=== PATIENT | female | born 1995 | race Caucasian/White ===

== ENCOUNTER 2016-10-13 12:26 | Inpatient (IN) | payer BC ==
[2016-10-13 14:18] LABS: Hematocrit 34 % (35-47); Hemoglobin 11.1 g/dl (12.0-16.0); Mean Corpuscular HGB Conc 33 g/dl (31-36); Mean Corpuscular Hemoglobin 28 pg (27-31); Mean Corpuscular Volume 85 fL (80-97); Mean Platelet Volume 10 um3 (7.4-10.4); Red Blood Count 3.98 10^6/ul (4.0-5.4); Red Cell Distribution Width 14 % (10.5-15); White Blood Count 18.3 10^3/ul (3.5-10.8)
[2016-10-13 14:19] LABS: Add Diff/Slide Review? Slide Review Added; Comments Flag Yes
[2016-10-13] MEDS ORDERED: Oxytocin in LR* 20 UNITS/1,000 ML BAG IVPB SCH ×2 (16:00→18:00)
[2016-10-13] MEDS ORDERED: OBEPIDURAL* 0 ML ONE (16:55)
[2016-10-13] MEDS ORDERED: Glycerin ADULT SUPP PR PRN (17:58)
[2016-10-13] MEDS ORDERED: Witch Hazel PAD* JAR TOPICAL PRN (17:58)
[2016-10-13] MEDS ORDERED: Dibucaine 1% 28.35 GM TUBE PR PRN (17:58)
[2016-10-13] MEDS: Ibuprofen TAB* 600 MG PO PRN (19:59)
[2016-10-13] MEDS ORDERED: Simethicone TAB* 80 MG TAB.CHEW PO SCH (21:00)
[2016-10-13] MEDS: Acetaminophen TAB* 325 MG PO PRN (22:13)
[2016-10-14] MEDS: Ibuprofen TAB* 600 MG PO PRN ×4 (02:02→20:33)
[2016-10-14] MEDS ORDERED: oxyCODONE/Acetamin 5/325 MG* TAB ONE (03:22)
[2016-10-14] MEDS ORDERED: oxyCODONE/Acetamin 5/325 MG* TAB PO ONE (04:00)
[2016-10-14 06:30] LABS: Hematocrit 32 % (35-47); Hemoglobin 10.2 g/dl (12.0-16.0); Mean Corpuscular HGB Conc 32 g/dl (31-36); Mean Corpuscular Hemoglobin 28 pg (27-31); Mean Corpuscular Volume 87 fL (80-97); Mean Platelet Volume 10 um3 (7.4-10.4); Red Blood Count 3.64 10^6/ul (4.0-5.4); Red Cell Distribution Width 14 % (10.5-15); White Blood Count 22.4 10^3/ul (3.5-10.8)
[2016-10-14] MEDS: Docusate CAP* 100 MG PO SCH ×4 (06:30→19:36)
[2016-10-14] MEDS: Acetaminophen TAB* 325 MG PO PRN ×4 (06:37→19:36)
[2016-10-14 06:43] LABS: Comments Flag Yes
[2016-10-14] MEDS ORDERED: Ferrous Gluconate TAB* 324 MG TAB PO SCH (09:00)
[2016-10-14] MEDS: oxyCODONE/Acetamin 5/325 MG* TAB PO PRN (21:51)
[2016-10-15] MEDS: Ibuprofen TAB* 600 MG PO PRN ×2 (02:29→08:26)
[2016-10-15] MEDS: oxyCODONE/Acetamin 5/325 MG* TAB PO PRN ×2 (04:24→10:33)
[2016-10-15 08:24] VITALS: BP 110/70
[2016-10-15] MEDS: Docusate CAP* 100 MG PO SCH (09:19)
== END 2016-10-15 11:34 | disposition home or self-care (01) | DRG 560 ==
LOC: MCHOBOUT 12:26 → MCHOB 13:02
PROVIDERS: ADMIT Obstetrics & Gynecology; ATTEND Obstetrics & Gynecology
PROC: 10E0XZZ Delivery of Products of Conception, External Approach (ICD-10-PCS; principal; 2016-10-13)
DX: O99.334 Smoking (tobacco) complicating childbirth (principal); O99.344 Other mental disorders complicating childbirth; F17.210 Nicotine dependence, cigarettes, uncomplicated; F32.89 Other specified depressive episodes; Z3A.39 39 weeks gestation of pregnancy; Z37.0 Single live birth
CPT/HCPCS: 36415; 85025; 86850; 86900; 86901; A9270-GY

== ENCOUNTER 2019-01-12 09:03 | Emergency (ER) | payer BC, MEDICAID ==
--- NOTE | 2019-01-12 09:27 | ED ---
Headache - HPI Summary HPI Summary: Pt. is a 23 y.o female who presents to the ER for a headache that started yesterday. Pt. notes hx of migraines and sees a neurologist at [place]. Pt. take fioricet as needed. Pt. states she developed a severe headache yesterday that was not relieved with fioricet so she went to ER at [place]. Pt. states she was treated with IV medication, felt better and was sent home. Pt. states today h/a returned and is more severe than her typical h/a. Pt. notes blurry/double vision and seeing a flashing light. Associated sxs of nausea. Lights and noise make sxs worse. Nothing makes sxs better. Past hx of depression. Denies recent illness, fever, sore throat, sinus pain, ear pain, cough, abd. pain. Sxs are moderate in severity. - History Of Current Complaint Chief Complaint: EDHeadache Stated Complaint: MIGRAINE PER PT Time Seen by Provider: 01/12/19 09:22 Hx Obtained From: Patient - Allergies/Home Medications Allergies/Adverse Reactions: Allergies Allergy/AdvReac Type Severity Reaction Status Date / Time erythromycin base Allergy Eyes Verified 01/12/19 09:09 Itchy/Swollen/Red/Watery Home Medications: Home Medications Butalb/Acetamin/Caff TAB* [Fioricet TAB*] 1 tab PO TID PRN 01/12/19 [History Confirmed 01/12/19] DULoxetine CAP* [Cymbalta CAP*] 60 mg PO DAILY 01/12/19 [History Confirmed ] Norelgest/Ethinyl Estr 150/35 [Xulane 150/35 PATCH] 1 patch TOPICAL WEEKLY 01/12 [History Confirmed 01/12/19] PMH/Surg Hx/FS Hx/Imm Hx Previously Healthy: Yes Psychiatric History: Reports: Hx Depression - Surgical History Surgery Procedure, Year, and Place: Eye surgery Infectious Disease History: No Infectious Disease History: Denies: Traveled Outside the [place] in Last 30 Days - Family History Known Family History: Positive: Cardiac Disease - paternal , Hypertension - maternal Family History: FHx of asthma, sleep apnea, and an unknown autoimmune disease. - Social History Occupation: Employed Full-time Lives: With Family Alcohol Use: None Substance Use Type: Reports: None Smoking Status (MU): Light Every Day Tobacco Smoker Type: Cigarettes Have You Smoked in the Last Year: Yes Review of Systems Constitutional: Negative Negative: Fever, Chills Positive: Photophobia, Blurred Vision, Diplopia. Negative: Drainage, Erythema ENT: Negative Cardiovascular: Negative Respiratory: Negative Positive: Nausea. Negative: Vomiting Genitourinary: Negative Positive: Arthralgia Skin: Negative Positive: Headache. Negative: Weakness, Paresthesia, Numbness, Syncope, Slurred Speech All Other Systems Reviewed And Are Negative: Yes Physical Exam Triage Information Reviewed: Yes Vital Signs On Initial Exam: Initial Vitals Temp Pulse Resp BP Pulse Ox 97.9 F 101 16 137/95 98 01/12/19 09:05 01/12/19 09:05 01/12/19 09:05 01/12/19 09:05 01/12/19 09:05 Vital Signs Reviewed: Yes Appearance: Positive: Well-Appearing - Pt. sitting up in bed in NAD. Talkative and interactive. Does not appear in every distress., Well-Nourished Skin: Positive: Warm, Dry Head/Face: Positive: Normal Head/Face Inspection Eyes: Positive: Normal, EOMI, MARVIN, Conjunctiva Clear ENT: Positive: Pharynx normal, TMs normal Neck: Positive: Supple, Nontender. Negative: Nuchal Rigidity Respiratory/Lung Sounds: Positive: Clear to Auscultation, Breath Sounds Present Cardiovascular: Positive: Normal, RRR Musculoskeletal: Positive: Normal, Strength/ROM Intact Neurological: Positive: Normal, Sensory/Motor Intact, Alert, Oriented to Person Place, Time, CN Intact II-III, Finger to Nose - normal, Facial Symmetry, Speech Normal. Negative: Slurred Speech, Pronator Drift Present Psychiatric: Positive: Affect/Mood Appropriate - Brii Coma Scale Best Eye Response: 4 - Spontaneous Best Motor Response: 6 - Obeys Commands Best Verbal Response: 5 - Oriented Coma Scale Total: 15 Diagnostics - Vital Signs Vital Signs Temp Pulse Resp BP Pulse Ox 01/12/19 09:05 97.9 F 101 16 137/95 98 - Laboratory Lab Statement: Any lab studies that have been ordered have been reviewed, and results considered in the medical decision making process. Headache Course/Dx - Course Course Of Treatment: Pt. presenting with change in h/a. Pt. concerned and would like imagining. Exam is unremarkable. Pt. in NAD. Pt. able to drive self to the ER. Will given IV fluids, decadron and zofran. CT brain ordered to r/o bleed, mass. CT brain negative for acute findings. Toradol given. On re-exam pt. asking to drink water. Pt. states h/a minimally approved. She is very comfortable and has no neuro deficits. No further workup ordered. WIll have pt. f.u with her neurologist [facility]. To return to ER if sxs change or worsen. Pt. understands and agrees with plan. - Diagnoses Differential Diagnosis/HQI/PQRI: Epidural Hematoma, Meningitis, Migraine, Subarachnoid Hemorrhage Provider Diagnoses: Cephalgia Discharge - Sign-Out/Discharge Documenting (check all that apply): Patient Departure Patient Received Moderate/Deep Sedation with Procedure: No - Discharge Plan Condition: Improved Disposition: HOME Patient Education Materials: Migraine Headache (ED) Referrals: Kathy Herrera MD [Primary Care Provider] - As Soon As Possible Additional Instructions: Call your neurologist today to schedule a close follow up appointment Increase fluids and rest Return to ER if symptoms change or worsen - Billing Disposition and Condition Condition: IMPROVED Disposition: Home
[2019-01-12] MEDS ORDERED: Ondansetron INJ* 2 MG/ML VIAL IV ONE (09:51)
[2019-01-12] MEDS ORDERED: Dexamethasone IV* 4 MG/ML 5 ML VIAL (20 MG) IVPB ONE (09:51)
[2019-01-12] MEDS ORDERED: NS 0.9% 1000 ML** 1,000 ML IV ONE (09:51)
[2019-01-12] MEDS ORDERED: Ketorolac INJ* 30 MG/ML 1 ML VIAL IV PUSH ONE (10:33)
[2019-01-12 12:20] VITALS: BP 127/76
== END 2019-01-12 12:34 | disposition home or self-care (01) ==
LOC: ED 09:03
DX: R51 Headache (principal); F32.9 Major depressive disorder, single episode, unspecified; F17.210 Nicotine dependence, cigarettes, uncomplicated; Z88.3 Allergy status to other anti-infective agents
CPT/HCPCS: 70450; 96361; 96374; 96375; 99283; J1100; J1885; J2405

== ENCOUNTER 2019-10-21 10:31 | Emergency (ER) | payer BC, MEDICAID ==
[2019-10-21] MEDS ORDERED: Metoclopramide IV* 5 MG/ML 2 ML VIAL IV SLOW PU ONE (11:23)
--- NOTE | 2019-10-21 11:23 | ED ---
Headache - HPI Summary HPI Summary: 23-year-old female with significant past medical history of formally diagnosed migraines presents to the emergency department today complaining of 4 days of a 7 out of 10 occipital migraine without aura. Patient endorses associated photophobia, phonophobia as well as occasional blurred vision. Patient denies recent trauma. Patient has taken ibuprofen with minimal relief of symptoms. Patient is established with neurology in [place], [place]. Patient otherwise feels well and denies trauma, fever, neck pain or stiffness, chest pain, abdominal pain, pain with urination, rash. Pt denies "worst headache of my life " - History Of Current Complaint Chief Complaint: EDHeadache Stated Complaint: MIGRAIN FOR A WEEK PER PT Time Seen by Provider: 10/21/19 11:12 Hx Obtained From: Patient Onset/Duration: Gradual Onset, Started days ago Initially Headache Was: Severe Currently Pain Is: Severe Timing: Constant Character: Migraine Location of Headache: Occipital - Allergies/Home Medications Allergies/Adverse Reactions: Allergies Allergy/AdvReac Type Severity Reaction Status Date / Time cortisone Allergy Headache Verified 10/21/19 11:32 erythromycin base Allergy Eyes Verified 10/21/19 11:32 Itchy/Swollen/Red/Watery PMH/Surg Hx/FS Hx/Imm Hx Psychiatric History: Reports: Hx Depression - Surgical History Surgery Procedure, Year, and Place: Eye surgery Infectious Disease History: No Infectious Disease History: Denies: Traveled Outside the in Last 30 Days - Family History Known Family History: Positive: Cardiac Disease - paternal , Hypertension - maternal Family History: FHx of asthma, sleep apnea, and an unknown autoimmune disease. - Social History Alcohol Use: None Substance Use Type: Reports: None Smoking Status (MU): Light Every Day Tobacco Smoker Type: Cigarettes Have You Smoked in the Last Year: Yes Review of Systems Constitutional: Negative Eyes: Negative ENT: Negative Cardiovascular: Negative Respiratory: Negative Gastrointestinal: Negative Genitourinary: Negative Musculoskeletal: Negative Skin: Negative Positive: Headache Psychological: Normal All Other Systems Reviewed And Are Negative: Yes Physical Exam - Summary Physical Exam Summary: PERRLA, EOMI, patient is in no acute distress with no signs of trauma. Negative Kernig and Brudzinski. Triage Information Reviewed: Yes Vital Signs On Initial Exam: Initial Vitals Temp Pulse Resp BP Pulse Ox 97.8 F 78 16 135/108 99 10/21/19 10:32 10/21/19 10:32 10/21/19 10:32 10/21/19 10:32 10/21/19 10:32 Vital Signs Reviewed: Yes Appearance: Positive: Well-Appearing, No Pain Distress, Well-Nourished Skin: Positive: Warm, Skin Color Reflects Adequate Perfusion Eyes: Positive: EOMI, MARVIN ENT: Positive: Hearing grossly normal Respiratory/Lung Sounds: Positive: Clear to Auscultation, Breath Sounds Present Cardiovascular: Positive: RRR, S1, S2 Abdomen Description: Positive: Nontender, Soft Bowel Sounds: Positive: Present Musculoskeletal: Positive: Strength/ROM Intact Neurological: Positive: Sensory/Motor Intact, Alert, Oriented to Person Place, Time, Normal Gait, Facial Symmetry, Speech Normal Psychiatric: Positive: Affect/Mood Appropriate, Anxious AVPU Assessment: Alert Procedures - Sedation Patient Received Moderate/Deep Sedation with Procedure: No Diagnostics - Vital Signs Vital Signs Temp Pulse Resp BP Pulse Ox 10/21/19 10:32 97.8 F 78 16 135/108 99 - Laboratory Lab Statement: Any lab studies that have been ordered have been reviewed, and results considered in the medical decision making process. Headache Course/Dx - Course Course Of Treatment: Patient was evaluated in the emergency department today for migraine. Vitals noted and stable. Patient afebrile. Negative Kernig and Brudzinski with no evidence of meningitis. Patient denied worse headache of her life and has no neurological changes. Patient was given oral Reglan, Benadryl and IM Toradol which significantly reduced her symptoms. Patient was given prescription for oral Reglan and ibuprofen and told to take ibuprofen for pain. Patient discharged with neurology outpatient follow-up. - Diagnoses Differential Diagnosis/HQI/PQRI: Meningitis, Subarachnoid Hemorrhage, Viral Syndrome, Other Provider Diagnoses: Migraine Discharge ED - Sign-Out/Discharge Documenting (check all that apply): Patient Departure - Discharge Plan Condition: Stable Disposition: HOME Prescriptions: diPHENhydraMINE PO* [Benadryl PO 50 MG CAP*] 50 mg PO TID #12 cap Metoclopramide TAB* [Reglan TAB*] 10 mg PO Q8H PRN #12 tab PRN Reason: Headache Patient Education Materials: Migraine Headache (ED) Referrals: No Primary Care Phys,NOPCP [Primary Care Provider] - Additional Instructions: You were seen in the emergency department today due to migraine. Please take Reglan 10 mg and 50 mg of Benadryl twice daily as needed for alleviation of your migraine. You may also take ibuprofen 600mg every 6 hours as needed. Please follow-up with your neurologist in 5 days for further evaluation and management. Please return to the emergency department immediately if you develop any new or worsening symptoms. - Billing Disposition and Condition Condition: STABLE Disposition: Home
[2019-10-21] MEDS ORDERED: diPHENhydraMINE IV* 50 MG/ML 1 ml VIAL (BENADRYL) SLOW PUSH ONE (11:24)
[2019-10-21] MEDS ORDERED: NS 0.9% 1000 ML** 1,000 ML IV ONE (11:24)
[2019-10-21] MEDS ORDERED: Ketorolac INJ* 30 MG/ML 1 ML VIAL IV PUSH ONE (11:24)
[2019-10-21] MEDS ORDERED: Metoclopramide TAB* 10 MG PO ONE (11:38)
[2019-10-21] MEDS ORDERED: diPHENhydraMINE PO* 50 MG PO ONE (11:39)
[2019-10-21] MEDS ORDERED: Ketorolac INJ* 30 MG/ML 1 ML VIAL IM ONE (11:39)
[2019-10-21 12:43] VITALS: BP 122/90
== END 2019-10-21 12:41 | disposition home or self-care (01) ==
LOC: ED 10:31
DX: Z88.1 Allergy status to other antibiotic agents (principal); Z88.8 Allergy status to other drugs, medicaments and biological substances; F17.210 Nicotine dependence, cigarettes, uncomplicated
CPT/HCPCS: 96372; 99282; A9270-GY; J1885